=== PATIENT | male | born 1970 | race Caucasian/White ===

== ENCOUNTER 2019-09-25 09:02 | Emergency (ER) | payer BC, OTHER ==
[~2019-09-25] VITALS: Ht 182.9 cm; Wt 45.4 kg
[2019-09-25] MEDS ORDERED: MORPHINE SULF INJ 2 MG/ML SYRINGE 1ML IV ONE ×2 (09:45→12:00)
[2019-09-25] MEDS ORDERED: ONDANSETRON HCL 4 MG/2 ML VIAL IV ONE (09:45)
[2019-09-25 11:30] VITALS: BP 98/65
== END 2019-09-25 13:52 | disposition home or self-care (01) ==
LOC: ER 09:02
DX: S32.10XA Unspecified fracture of sacrum, initial encounter for closed fracture (principal); W01.0XXA Fall on same level from slipping, tripping and stumbling without subsequent striking against object, initial encounter; Y93.89 Activity, other specified; Y92.89 Other specified places as the place of occurrence of the external cause; Y99.8 Other external cause status
CPT/HCPCS: 72131; 72220; 96374; 96375; 96376; 99284; J2270; J2405